=== PATIENT | female | born 1950 | race Caucasian/White ===

== ENCOUNTER → 2023-08-31 09:44 | Outpatient (REF) | payer MEDICARE, OTHER, SELFPAY | LOC: RCS 09:44 | PROVIDERS: ATTENDING PHYSICIAN Internal Medicine Hematology & Oncology; FAMILY PHYSICIAN Family Medicine | DX: C91.10 Chronic lymphocytic leukemia of B-cell type not having achieved remission (principal) | CPT/HCPCS: 93005 ==

== ENCOUNTER → 2023-11-20 08:50 | Outpatient (REF) | payer MEDICARE, OTHER, SELFPAY | LOC: WDC 08:50 | PROVIDERS: ATTENDING PHYSICIAN Obstetrics & Gynecology; FAMILY PHYSICIAN Family Medicine | DX: R92.2 Inconclusive mammogram (principal) | CPT/HCPCS: 76641 ==

== ENCOUNTER → 2023-12-04 09:34 | Outpatient (REF) | payer MEDICARE, OTHER, SELFPAY | LOC: RAD 09:34 | PROVIDERS: ATTENDING PHYSICIAN Nurse Practitioner Adult Health; FAMILY PHYSICIAN Family Medicine | DX: C91.10 Chronic lymphocytic leukemia of B-cell type not having achieved remission (principal) | CPT/HCPCS: 71046 ==

== ENCOUNTER → 2024-02-07 07:28 | Outpatient (REF) | payer MEDICARE, OTHER, SELFPAY | LOC: RCS 07:28 | PROVIDERS: ATTENDING PHYSICIAN Internal Medicine Cardiovascular Disease; FAMILY PHYSICIAN Family Medicine | DX: C91.10 Chronic lymphocytic leukemia of B-cell type not having achieved remission (principal); I48.0 Paroxysmal atrial fibrillation | CPT/HCPCS: 93306; 93356 ==

== ENCOUNTER 2024-03-10 11:53 | Day surgery (SDC) | payer MEDICARE, OTHER, SELFPAY ==
--- NOTE | 2024-03-10 12:59 | ITS.CL.IMPLP ---
[facility] - Implant Loop
Implant Loop
Procedure Report:
Date of Procedure: March 10, 2024
Primary Care Provider: Dr. Anthony Braga
Primary graphic design assistant: Dr Jaelyn Ontiveros
Procedure: Insertable Loop Recorder Implantation
Indication:
Atrial fibrillation
Procedure:
The patient was brought to the procedure area in a fasting state. The anterior chest was prepped and draped in standard sterile fashion. The fourth intercostal space along the left sternal border was identified and this area was anesthetized with 10
mL of 1% lidocaine. After gathering the skin in this area, a small punch incision was made at approx intercostal space 4-5 at left costo-sternal junction using the provided scalpel/punch tool. The loop recorder was loaded into the tunneling device.
A tunnel was created in the subcutaneous tissue at a 45� angle along the coronal plane away from the sternum and towards the left flank. The tunneling device was inverted and the plunger was depressed, inserting the loop recorder into the
subcutaneous space. The tunneling device was removed. Manual pressure provide hemostasis. Adequate signal was confirmed. The skin was closed with steri-strips. The estimated blood loss was < 1 cc. A clean dressing was placed over the wound.
There were no complications.
Implant:
[employer] Reveal LINQ II
Conclusion: Uncomplicated implantation of loop recorder.
Recommendation: Routine ILR care.
== END 2024-03-10 12:55 | disposition home or self-care (01) ==
LOC: CATH 11:53
PROVIDERS: ATTENDING PHYSICIAN Internal Medicine Cardiovascular Disease; FAMILY PHYSICIAN Family Medicine; OTHER PHYSICIAN Internal Medicine Cardiovascular Disease
DX: Z09 Encounter for follow-up examination after completed treatment for conditions other than malignant neoplasm (principal); I48.91 Unspecified atrial fibrillation; Z79.82 Long term (current) use of aspirin; Z79.899 Other long term (current) drug therapy
CPT/HCPCS: 33285; C1764

== ENCOUNTER → 2024-06-10 06:22 | Day surgery (SDC) | payer MEDICARE, OTHER, SELFPAY | LOC: GI 06:22 | PROVIDERS: ATTENDING PHYSICIAN Internal Medicine Gastroenterology | DX: Z12.11 Encounter for screening for malignant neoplasm of colon (principal); K64.8 Other hemorrhoids | CPT/HCPCS: G0121 ==

== ENCOUNTER 2024-06-17 08:19 | Emergency (ER) | payer MEDICARE, OTHER, SELFPAY ==
[2024-06-17 08:23] VITALS: BP 120/75
--- NOTE | 2024-06-17 08:50 | ED.GENMED ---
History of Present Illness
General
Chief Complaint: Fall
Time Seen by Provider: 06/17/24 08:30
History of Present Illness
History of Present Illness:
73-year-old female presents to the emergency department for evaluation of left elbow pain after a mechanical ground-level fall. Slipped and fell on the ice, struck the elbow, did not strike the head. Denies any left hand paresthesias or weakness
Past History
Past History
ED Past Medical History: None
ED Past Surgical History: Orthopedic and Other (bladder sx)
Social History
Tobacco: Non-smoker
Alcohol: Daily
Personal:
Living: with family
Review of Systems
Review of Systems
Allergies reviewed?: Yes
All Other Systems: ROS reviewed and negative except as documented in HPI and ROS
Phy Exam
Physical Exam
Physical Exam:
GEN: Well appearing, NAD, WDWN
HEENT: Oral mucosa moist, no scleral icterus
Cardiac: Regular rate
Lung: No respiratory distress, no tachypnea
MSK: Large hematoma overlying the olecranon, no gross bony deformity, left ulnar nerve distribution sensation of the hand is intact
Skin: Good color, no pallor or jaundice, no rashes
Neuro: AO x3, moves all extremities freely
Psych: Calm, cooperative
Course
Orders/Labs/Results
Orders:
Orders
06/17/24 08:28
Elbow, 3 view, Left [CR Elbow - Left Min 3 Views ] Urgent
Comment:
Reason For Exam: pain after fall
Vital Signs
Initial and Last Documented VS:
Initial Vital Signs
Temp Pulse Resp BP Pulse Ox
97.4 F 70 20 120/75 99
06/17/24 08:23 06/17/24 08:23 06/17/24 08:23 06/17/24 08:23 06/17/24 08:23
Last Documented Vital Signs
Temp Pulse Resp BP Pulse Ox
97.4 F 70 20 120/75 99
06/17/24 08:23 06/17/24 08:23 06/17/24 08:23 06/17/24 08:23 06/17/24 08:23
Procedures
Splinting/Sling Placement
Left Elbow:
Procedure completed by: Yonatan Martinez PA-C
Pre-splint extermity exam: neurovascular intact
Type of splint: posterior long arm
Splint material: fiberglass
Splint checked by provider?: Yes
Type of sling: sling fitted
Normal distal neurovascular exam?: Yes
MDM/Problems Addressed
MDM/Problems Addressed:
X-rays reveal a slightly distracted left olecranon fracture. Placed in a splint at approximately 15 to 30 degrees of flexion, outpatient orthopedic follow-up encouraged
*Critical Care Note
Total Time (30-74mins, 75-104mins- exclusive of procedures): Not Applicable
ED Attending Note
-
Portions of this chart may have been created with voice recognition software.� Occasional wrong word or��sound alike� substitutions may have occurred due to the inherent limitations of voice recognition software.
Discharge Plan
Departure
Patient Disposition: Home (Routine Discharge)
Date of Disposition: 06/17/24
Time of Disposition: 08:52
Patient with high blood pressure during this ER visit?: No
Discharge Problem:
Closed fracture of left olecranon process
Instructions: Elbow Fracture, Adult ED
Prescriptions:
No Action
aspirin 81 mg Tablet
81 mg PO DAILY
Calquence 100 mg Capsule
100 mg PO BID
Vitamin D3 125 mcg
125 mcg PO AMHS
vitamin C55-dooen acid 2,000 mcg
2,000 mcg PO AMHS
metoprolol succinate 12.5 mg
12.5 mg PO HS
Referrals:
Gregg Sheikh MD [Active] - Call in 1-3 days for appt
Activity Restrictions/Additional Instructions:
You may take acetaminophen (Tylenol) every 6 hours as needed for pain
Ice on the front of the elbow can reduce swelling
Contact orthopedics for follow up
Interventions
Interventions:
*Risk Screen - Suicide Last Done: 06/17/24 08:26
*General Assessment Last Done: 06/17/24 08:26
*Neglect/Abuse Screening Last Done: 06/17/24 08:26
*ED COVID-19 Vaccine History Last Done: 06/17/24 08:26
*Nursing Disposition Last Done: 06/17/24 09:09
ED-Musculoskeletal Assessment Last Done: 06/17/24 08:36
ED- Neurological Assessment Last Done: 06/17/24 08:36
ED-Skin Assessment Last Done: 06/17/24 08:36
Discharge Date and Time
Discharge Date/Time: 06/17/24 09:09
Print Language: SWEDISH
== END 2024-06-17 09:09 | disposition home or self-care (01) ==
LOC: EMR 08:19
PROVIDERS: EMERGENCY PHYSICIAN Emergency Medicine
DX: S52.022A Displaced fracture of olecranon process without intraarticular extension of left ulna, initial encounter for closed fracture (principal); W00.0XXA Fall on same level due to ice and snow, initial encounter
CPT/HCPCS: 29105; 99283; 73080

== ENCOUNTER → 2024-06-23 06:47 | Outpatient (REF) | payer MEDICARE, OTHER, SELFPAY ==
[2024-06-23 09:59] LABS: ALT (SGPT) 13 U/L (0-35); AST (SGOT) 22 U/L (14-36); Albumin 4.3 g/dl (3.5-5.0); Alkaline Phosphatase 60 U/L (38-126); Blood Urea Nitrogen 11 mg/dl (7-17); Calcium 9.2 mg/dl (8.4-10.2); Carbon Dioxide 30 mmol/L (22-30); Chloride 96 mmol/L (98-107); Glucose 82 mg/dl (70-99); Potassium 3.8 mmol/L (3.5-5.1); Sodium 135 mmol/L (135-145); Total Bilirubin 0.6 mg/dl (0.2-1.3); Total Protein 6.1 g/dl (6.3-8.2); eGFR > 60.00
== END ==
LOC: SDSPAT 06:47
PROVIDERS: ATTENDING PHYSICIAN Orthopaedic Surgery; FAMILY PHYSICIAN Family Medicine
DX: S52.022A Displaced fracture of olecranon process without intraarticular extension of left ulna, initial encounter for closed fracture (principal)
CPT/HCPCS: 36415; 80053

== ENCOUNTER 2024-06-24 06:14 | Day surgery (SDC) | payer MEDICARE, OTHER, SELFPAY ==
[2024-06-23 12:59] VITALS: BMI 17.2
[2024-06-24] MEDS: TYLENOL 1000 MG PO (08:28)
[2024-06-24] MEDS: CELEBREX 200 MG PO (08:28)
[2024-06-24] MEDS: NORMOSOL-R/PLASMALYTE-A 1000 IV (08:29)
[2024-06-24 08:36] VITALS: BMI 17.2
[2024-06-24 08:37] VITALS: BP 117/73
[2024-06-24 11:39] VITALS: BP 110/66; BP 117/73
[2024-06-24 11:45] VITALS: BP 101/56
[2024-06-24] MEDS: ZOFRAN 4 MG IV (11:57)
[2024-06-24] MEDS: DILAUDID 0.25 MG IV (11:59)
[2024-06-24 12:00] VITALS: BP 97/63
[2024-06-24 12:15] VITALS: BP 103/61
[2024-06-24 12:30] VITALS: BP 103/62; BP 105/71
== END 2024-06-24 13:09 | disposition home or self-care (01) ==
LOC: SDS 06:14
PROVIDERS: ATTENDING PHYSICIAN Orthopaedic Surgery
DX: S52.022A Displaced fracture of olecranon process without intraarticular extension of left ulna, initial encounter for closed fracture (principal); W00.0XXA Fall on same level due to ice and snow, initial encounter
CPT/HCPCS: 24685; C1713

== ENCOUNTER → 2025-04-07 08:07 | Outpatient (REF) | payer MEDICARE, OTHER, SELFPAY | LOC: RCS 08:07 | PROVIDERS: ATTENDING PHYSICIAN Internal Medicine Cardiovascular Disease; FAMILY PHYSICIAN Family Medicine | DX: I48.0 Paroxysmal atrial fibrillation (principal); C91.10 Chronic lymphocytic leukemia of B-cell type not having achieved remission; I47.10 Supraventricular tachycardia, unspecified | CPT/HCPCS: 93306; 93356 ==

== ENCOUNTER → 2025-04-20 08:20 | Outpatient (REF) | payer MEDICARE, OTHER, SELFPAY | LOC: RCS 08:20 | PROVIDERS: ATTENDING PHYSICIAN Internal Medicine Cardiovascular Disease; FAMILY PHYSICIAN Family Medicine | DX: I48.0 Paroxysmal atrial fibrillation (principal); I47.10 Supraventricular tachycardia, unspecified; R00.0 Tachycardia, unspecified | CPT/HCPCS: 93017; 93350 ==